=== PATIENT | male | born 1985 | race African-American/Black ===

== ENCOUNTER 2017-04-28 10:44 | Emergency (ER) | payer OTHER ==
[2017-04-28] MEDS ORDERED: ADVAIR INHALER (11:07)
[2017-04-28] MEDS ORDERED: ALBUTEROL INHALER (11:07)
== END 2017-04-28 11:29 | disposition home or self-care (01) ==
LOC: SED 10:44
DX: S81.851A Open bite, right lower leg, initial encounter (principal); F17.200 Nicotine dependence, unspecified, uncomplicated; Z23 Encounter for immunization; W54.0XXA Bitten by dog, initial encounter; Y92.69 Other specified industrial and construction area as the place of occurrence of the external cause; Y99.0 Civilian activity done for income or pay
CPT/HCPCS: 90471; 90715; 99283